=== PATIENT | male | born 1960 | race Caucasian/White ===

== ENCOUNTER 2022-10-26 17:44 | Inpatient (IN) | payer BC, OTHER ==
[~2022-10-26] VITALS: Ht 180 cm; Wt 77.4 kg
--- NOTE | 2022-10-26 18:07 | ED Neurological Problem ---
General Chief Complaint: Neuro-Stroke Like Symptoms Stated Complaint: RT SIDED WEAKNESS Nursing Triage Note: Patient has presesnted to ER with cc of right side weakness that started about 1200 - noon - today Source: patient History of Present Illness Date Seen by Provider: Oct 26, 2022 Time Seen by Provider: 17:48 Initial Comments 62-year-old male presenting with complaints of right-sided weakness and decreased sensation since noon today. He denies any head injury or accident. He states that he is having trouble walking due to weakness in the right leg. He feels like the right side of his body is not working right. He had his family finally bring him to the emergency department just before 6 PM. He denies having symptoms like this previously. He does not take any medications and does not follow with any primary care providers. He states there is a family history of a brother who had to have a kidney transplant due to high blood pressure. Both of his parents are . He reports that he does use marijuana and last used last night. Timing/Duration: 4-6 hours Severity: moderate Associated Symptoms: No confusion, No fatigue, No fever/chills, No insomnia, No loss of consciousness, No muscle spasms, No nausea/vomiting, No numbness in legs/feet; paresthesia (reports decreased sensation to right arm and right side of face); No ringing in ears, No seizures, No sleepy, No slurred speech, No ting ling in legs/feet; trouble walking (right side weakness); No vision changes; weakness (right sided) Allergies and Home Medications Allergies Coded Allergies: No Known Drug Allergies (Unverified , 10/26/22) Patient Home Medication List Home Medication List Reviewed: Yes Review of Systems Review of Systems Constitutional: No chills, No dizziness, No fever Eyes: Denies Blurred Vision, Denies Photophobia, Denies Vision Changes Ears, Nose, Mouth, Throat: denies ear pain, denies ear discharge, denies nose pain, denies nose discharge, denies epistaxis Respiratory: No cough, No short of breath Cardiovascular: No chest pain, No edema, No palpitations Gastrointestinal: No abdominal pain, No nausea, No vomiting Genitourinary: No dysuria Musculoskeletal: No muscle pain Skin: No rash Psychiatric/Neurological: Denies Headache; Numbness (right side of face and right arm), Weakness (right arm and leg) Hematologic/Lymphatic: Denies Blood Clots Past [id number]-[id number] Hx Patient Social History Tobacco Use?: No Smoking Status: Former Smoker Use of E-Cig and/or Vaping dev: No Substance use?: Yes Substance type: Marijuana Substance frequency: Daily Alcohol Use?: No Past Medical History Surgeries: No Physical Exam Vital Signs Vital Signs - First Documented 10/26/22 17:52 Temp 36.5 Pulse 70 Resp 18 B/P (MAP) 145/122 (130) Pulse Ox 98 O2 Delivery Room Air Capillary Refill : Height, Weight, BMI Height: '" Weight: lbs. oz. kg; 24.00 BMI Method: General Appearance: WD/WN, no apparent distress HEENT: PERRL/EOMI, pharynx normal Neck: non-tender, full range of motion, supple, normal inspection Respiratory: chest non-tender, lungs clear, normal breath sounds, no respiratory distress, no accessory muscle use Cardiovascular: normal peripheral pulses, regular rate, rhythm Gastrointestinal: normal bowel sounds, non tender, soft, no pulsatile mass Extremities: normal range of motion, non-tender, normal capillary refill Neurologic/Psychiatric: alert, oriented x 3 Crainal Nerves: normal hearing, normal speech, PERRL Motor/Sensory: sensory deficit (reports decreased sensation to right face and arm but sensation is equal on legs bilaterally), weak motor strength RUE (mild drift to RUE), weak motor strength RLE (mild drift to RLE) Skin: warm/dry, other (thickened yellowed fingernails consistent with onychomycosis) Stroke Onset of Symptoms Date of Onset of Symptoms: Oct 26, 2022 Time of Symptom Onset: 12:00 Onset of Symptoms: Yes NIH Stroke Scale Assessment Select: Initial Level of Consciousness: 0=Alert (0), Level of Consciousness- Questions: 0=Answers both month/age (0), LOC Commands: 0=Performs both tasks (0), Gaze: Normal (0), Visual [place]: 0=No visual loss (0), Facial Movement (Facial Paresis): 0=Normal symmetrical mnt (0), Motor Function-Arms Right: 1=Drift (1), Motor Function-Arms Left: 0=No drift (0), Motor Function-Legs Right: 1=Drift (1), Motor Function-Legs Left: 0=No drift (0), Limb Ataxia: 0=Absent (0), Sensory: 1=Mild to Moderate loss (1), Best Language: 0=No aphasia (0), Dysarthria: 0=Normal (0), Extinction & Inattention: 0=No abnormality (0), Total: 3 Stroke Thrombolytic Exclusion Age 18 or Over: Yes Acute intenal hemorrhage: No History of CVA: No Uncontrolled Coagulation Defec: No Intracranial Hemorrhage: No Severe Hypertension: No GI or Bleed: No Subarachnoid Hemorrhage: No Intracranial Neoplasm/Aneurysm: No Oral Anticoagulants: No Surgery or Trauma: No Puncture of Non-Compressible V: No Recent CPR: No Diabetic Hemorrhagic Retinopat: No Organ Biopsy: No Recent Obstetric Delivery: No Glucose: No Significant Hepatic Dysfunctio: No NIH Stoke Scale >22: No Bacterial Endocarditis: No Pericarditis: No Improving Symptoms: No Platelets: No TPA Contraindication: Yes (presentation to ED 6 hours post onset of symptoms) IV - TPa Received IV - TPa Procedure Performed?: No (presentation to ED 6 hours post onset of symptoms) Progress/Results/Core Measures Results/Orders Lab Results Laboratory Tests Test 10/26/22 17:51 10/26/22 18:22 10/26/22 20:24 Range/Units White Blood Count 8.4 4.3-11.0 10^3/uL Red Blood Count 6.19 H 4.30-5.52 10^6/uL Hemoglobin 17.4 13.3-17.7 g/dL Hematocrit 53 40-54 % Mean Corpuscular Volume 86 80-99 fL Mean Corpuscular Hemoglobin 28 25-34 pg Mean Corpuscular Hemoglobin Concent 33 32-36 g/dL Red Cell Distribution Width 13.1 10.0-14.5 % Platelet Count 246 130-400 10^3/uL Mean Platelet Volume 9.1 9.0-12.2 fL Immature Granulocyte % (Auto) 0 % Neutrophils (%) (Auto) 61 42-75 % Lymphocytes (%) (Auto) 24 12-44 % Monocytes (%) (Auto) 11 0-12 % Eosinophils (%) (Auto) 2 0-10 % Basophils (%) (Auto) 1 0-10 % Neutrophils # (Auto) 5.2 1.8-7.8 X 10^3 Lymphocytes # (Auto) 2.0 1.0-4.0 X 10^3 Monocytes # (Auto) 0.9 0.0-1.0 X 10^3 Eosinophils # (Auto) 0.2 0.0-0.3 10^3/uL Basophils # (Auto) 0.1 0.0-0.1 10^3/uL Immature Granulocyte # (Auto) 0.0 0.0-0.1 10^3/uL Prothrombin Time 12.0 L 12.2-14.7 SEC INR Comment 0.8 0.8-1.4 Activated Partial Thromboplast Time 28 24-35 SEC Sodium Level 143 135-145 MMOL/L Potassium Level 4.5 3.6-5.0 MMOL/L Chloride Level 106 98-107 MMOL/L Carbon Dioxide Level 26 21-32 MMOL/L Anion Gap 11 5-14 MMOL/L Blood Urea Nitrogen 13 7-18 MG/DL Creatinine 1.16 0.60-1.30 MG/DL Estimat Glomerular Filtration Rate 71 BUN/Creatinine Ratio 11 Glucose Level 95 70-105 MG/DL Calcium Level 9.8 8.5-10.1 MG/DL Corrected Calcium 9.4 8.5-10.1 MG/DL Total Bilirubin 0.5 0.1-1.0 MG/DL Aspartate Amino Transf (AST/SGOT) 25 5-34 U/L Alanine Aminotransferase (ALT/SGPT) 27 0-55 U/L Alkaline Phosphatase 109 40-136 U/L Troponin I < 0.30 <0.30 NG/ML Total Protein 7.6 6.4-8.2 GM/DL Albumin 4.5 3.2-4.5 GM/DL Serum Alcohol < 10 <10 MG/DL Glucometer 36 *L 70-110 MG/DL Urine Color YELLOW Urine Clarity CLEAR Urine pH 8.0 5-9 Urine Specific [place] 1.010 L 1.016-1.022 Urine Protein NEGATIVE NEGATIVE Urine Glucose (UA) NEGATIVE NEGATIVE Urine Ketones NEGATIVE NEGATIVE Urine Nitrite NEGATIVE NEGATIVE Urine Bilirubin NEGATIVE NEGATIVE Urine Urobilinogen 0.2 < = 1.0 MG/DL Urine Leukocyte Esterase NEGATIVE NEGATIVE Urine RBC (Auto) NEGATIVE NEGATIVE Urine RBC 0-2 /HPF Urine WBC NONE /HPF Urine Crystals NONE /LPF Urine Bacteria NEGATIVE /HPF Urine Casts NONE /LPF Urine Mucus SMALL H /LPF Urine Culture Indicated NO Urine Opiates Screen NEGATIVE NEGATIVE Urine Oxycodone Screen NEGATIVE NEGATIVE Urine Methadone Screen NEGATIVE NEGATIVE Urine Propoxyphene Screen NEGATIVE NEGATIVE Urine Barbiturates Screen NEGATIVE NEGATIVE Ur Tricyclic Antidepressants Screen NEGATIVE NEGATIVE Urine Phencyclidine Screen NEGATIVE NEGATIVE Urine Amphetamines Screen POSITIVE H NEGATIVE Urine Methamphetamines Screen POSITIVE H NEGATIVE Urine Benzodiazepines Screen NEGATIVE NEGATIVE Urine Cocaine Screen NEGATIVE NEGATIVE Urine Cannabinoids Screen NEGATIVE NEGATIVE My Orders Orders - SOFIYA RAMOS MD Cbc With Automated Diff (10/26/22 18:00) Protime With Inr (10/26/22 18:00) Partial Thromboplastin Time (10/26/22 18:00) Comprehensive Metabolic Panel (10/26/22 18:00) Troponin I Fs (10/26/22 18:00) Ua Culture If Indicated (10/26/22 18:00) Chest 1 View Ap/Pa Only (10/26/22 18:00) Ekg Tracing (10/26/22 18:00) Nothing By Mouth (10/26/22 Dinner) Accucheck Stat ONCE (10/26/22 18:00) Ed Iv/Invasive Line Start (10/26/22 18:00) Vital Signs Stroke Patient Q15M (10/26/22 18:00) Ct Head Wo-R/O Stroke (10/26/22 18:00) O2 (10/26/22 18:00) Intake & Output 06,14,22 (10/26/22 18:00) Monitor-Rhythm Ecg Trace Only (10/26/22 18:00) Dysphagia Screening Tool Q10MX1 (10/26/22 18:00) Alcohol (10/26/22 18:00) Drug Screen Stat (Urine) (10/26/22 18:00) Ct Angio Head/Neck (10/26/22 18:32) Iohexol Injection (Omnipaque 350 Mg/Ml 1 (10/26/22 18:45) Received Contrast (Hold Metformin- Contr (10/26/22 18:45) Ns (Ivpb) (Sodium Chloride 0.9% Ivpb Bag (10/26/22 18:45) Aspirin Tablet (Aspirin Tablet) (10/26/22 19:49) Clopidogrel Tablet (Plavix Tablet) (10/26/22 19:49) Ed Admission (Communication) (10/26/22 19:56) Code/Resuscitation (10/26/22 19:56) Medications Given in ED Current Medications Medications Dose Ordered Sig/Celestine Route Start Time Stop Time Status Last Admin Dose Admin Iohexol 75 ml ONCE ONCE IV 10/26/22 18:45 10/26/22 18:46 DC 10/26/22 18:55 75 ML Sodium Chloride 100 ml ONCE ONCE IV 10/26/22 18:45 10/26/22 18:46 DC 10/26/22 18:55 80 ML Vital Signs/I&O 10/26/22 10/26/22 10/26/22 17:52 19:10 20:57 Temp 36.5 Pulse 70 70 72 Resp 18 16 16 B/P (MAP) 145/122 (130) 158/76 124/76 Pulse Ox 98 99 99 O2 Delivery Room Air Room Air Blood Pressure Mean: 130 Progress Progress Note #1: Progress Note Potential diagnosis of acute stroke, substance abuse, hypertensive urgency, electrolyte imbalance, renal failure, hepatic failure. NIH stroke scale obtained on arrival to the emergency department. He scored a 3 with taking 1 off for decreased sensation to the right face and arm, one off for drift on the right upper extremity and 1 off for drift in the right lower extremity. This gave him a total NIH stroke scale of 3. He denied having a headache or any change in vision. Obtain peripheral IV access and send labs for complete blood count, comprehensive metabolic profile, troponin, alcohol, urinalysis, urine drug screen, pro time and INR, PTT. Electrocardiogram to assess his heart rate and rhythm. Placed on cardiac classroom paraprofessional to watch for any cardiac arrhythmia that might be contributing to his symptoms. Obtain CT scan of the head without IV contrast to look for signs of acute stroke or intracranial hemorrhage. Obtain 1 view chest x-ray looking for signs of cardiomegaly, mass, effusion. Progress Note #2: Time: 18:19 Progress Note I have reviewed the 1 view chest x-ray and CT head without contrast. On my personal interpretation and review I did not appreciate any acute process on his chest. I also did not appreciate any acute hemorrhage or evidence of stroke on the CT scan of the head. His complete blood count showed a normal white blood cell count of 8.4. His platelets were normal at 246. His hemoglobin was at the upper limits of high normal at 17.4. His coagulation factors were not elevated to indicate a coagulopathy. His alcohol level was less than 10. His comprehensive metabolic profile did not show any acute significant electrolyte imbalance. His renal function showed a creatinine of 1.16. Glucose was 95. His troponin was less than 0.3. We will add on a CT angiogram of the head and neck provided the radiologist report does not show anything different than my initial interpretation of the CT scan of the head. 182 reviewed the radiologist report on the single view chest x-ray and they did not see any acute process. 183 and I reviewed the radiologist report of the CT head without contrast and they did not appreciate any acute intracranial hemorrhage, mass, evidence of stroke. Proceed with the CT angiogram of the head and neck looking for possible large vessel occlusion. Once I have that report I will check in with the stroke neurologist to see if they have additional recommendations. Progress Note #3: Time: 19:11 Progress Note Discussed the case and patient presentation with Dr. Darien Horner from Neurology wind farm operations manager for stroke presentations. I reviewed the patient's presentation 6 hours post onset of symptoms. He was not having severe hypertension here in the emergency department. His NIH stroke scale was 3 with right-sided drift of the arm and leg and then decreased sensation of the right arm and face. He had stable labs without any acute significant abnormality to account for his symptoms today. CT head did not show intracranial hemorrhage or mass. On the CT angiogram they did not see any large vessel occlusion or clot for retrieval. He advised the patient would still benefit from admission and obtaining an echocardiogram to evaluate for any vegetations or clot in his heart as well as MRI of the brain. Telemetry monitoring to look for arrhythmia. He should be started on aspirin and Plavix for 3 weeks and then after 3 weeks he could decrease to monotherapy just with aspirin. We will give the first dose of aspirin and Plavix here in the ED and then call Dr. Milan on-call hospitalist for unassigned patients about admission. 1953 I reviewed the case with Dr. Milan wind farm operations manager hospitalist for unassigned admits. I reviewed the patient's presentation as well as his stable vital signs and normal lab results with CT scan of the head and CT angiogram of the head and neck without any obvious large vessel occlusion or hemorrhage. Recommendations from stroke neurologist reviewed with her. She was agreeable to admitting the patient to [facility]. She will place queued orders and I will place bed request order and code status. Initial ECG Impression Date: Oct 26, 2022 Initial ECG Impression Time: 18:02 Initial ECG Rate: 71 Initial ECG Rhythm: Normal Sinus Initial ECG Comparisson: No Previous ECG Available Comment On my initial interpretation and review his electrocardiogram shows a normal sinus rhythm with a heart rate of 71 bpm. SD interval 180 ms. There is no acute ST elevation. QT interval 358 ms with a QTc interval 381 ms. There is no prior tracing available for comparison. Diagnostic Imaging Diagonstic Imaging: CT Plain Films/CT/US/NM/MRI: head Comments NAME: ROB GLEZ [facility] REC#: [id number] PT STATUS: REG ER : 1960 PHYSICIAN: SOFIYA RAMOS MD ADMIT DATE: 10/26/22/ER FS Draft Date of Exam:10/26/22 CT HEAD WO-R/O STROKE Procedure: CT head wo r/o stroke. Technique: Multiple contiguous axial images were obtained through the brain without the use of intravenous contrast. Auto Exposure Controls were utilized during the CT exam to meet ALARA standards for radiation dose reduction. Date: October 26, 2022. Indication: 62-year-old male, right-sided weakness. Comparison: None. Findings: There is no identified skull fracture. The visualized portions of the paranasal sinuses, mastoid air cells and middle ears are well aerated. The ventricles and additional CSF spaces are normal in size and configuration for patient age. There is no identified abnormal extra-axial fluid collection. There is no evidence of acute intracranial hemorrhage. There is no mass effect or midline shift. Impression: No identified acute intracranial abnormality. Dictated on workstation # [id number] Dict: 10/26/22 1821 Trans: 10/26/22 1826 [facility] [id number] Interpreted by: NIKKY MASON MD Electronically signed by: Reviewed: Reviewed by Me (I reviewed the radiologist report at 1831) Diagonstic Imaging: Xray Plain Films/CT/US/NM/MRI: chest Comments NAME: ROB GLEZ [facility] REC#: [id number] PT STATUS: REG ER : 1960 PHYSICIAN: SOFIYA RAMOS MD ADMIT DATE: 10/26/22/ER FS Draft Date of Exam:10/26/22 CHEST 1 VIEW AP/PA ONLY EXAMINATION: Chest radiograph, portable AP view. DATE: 10/26/2022 6:19 PM INDICATION: 62-year-old male, right-sided weakness and neurologic deficits. COMPARISON: None. FINDINGS: Heart size and mediastinal contours are unremarkable. There is no identified pneumothorax. There is no large pleural effusion. There is no identified focal airspace consolidation. IMPRESSION: No identified acute cardiopulmonary abnormality. Dictated on workstation # [id number] Dict: 10/26/221819 Trans: 10/26/221821 [facility] [id number] Interpreted by: NIKKY MASON MD Electronically signed by: Reviewed: Reviewed by Me (I reviewed the radiologist report at 1825) Diagonstic Imaging: CT (angiography head and neck) Plain Films/CT/US/NM/MRI: head (and neck) Comments NAME: ROB GLEZ [facility] REC#: [id number] PT STATUS: REG ER : 1960 PHYSICIAN: SOFIYA RAMOS MD ADMIT DATE: 10/26/22/ER FS Draft Date of Exam:10/26/22 CT ANGIO HEAD/NECK Procedure: CT angiography of the head and CT angiography of the neck with and without contrast. Technique: Contiguous noncontrast images were obtained from the skull base through the vertex. After intravenous contrast administration, helical CT angiography of the neck was performed. Source data was reformatted into 3D MIP projections. Delayed post contrast acquisition was also obtained. Auto Exposure Controls were utilized during the CT exam to meet ALARA standards for radiation dose reduction. Date: October 26, 2022. Indication: 62-year-old male, right-sided weakness. Concern for stroke. Comparison: CT head without contrast October 26, 2022. Findings: The left common carotid artery is patent. There is mild calcified plaque at the proximal aspect of the left internal carotid artery without high-grade stenosis. There is poor contrast opacification in the left internal carotid artery distal to the level of the carotid canal. This may relate to the timing of the contrast bolus. The very proximal aspect of the left middle cerebral artery, at the M1 and proximal M2 levels, appears to be patent. The left anterior cerebral artery also appears grossly patent in its proximal aspects. The right anterior cerebral artery is patent in its proximal aspects. There is a patent anterior communicating artery. The right middle cerebral artery is patent. The right internal carotid artery is patent. There are calcifications of the cavernous segment of the right internal carotid artery. There is mild calcified plaque at the proximal aspect of the right internal carotid artery without high-grade stenosis. The right common carotid artery is patent. There is conventional origin of the left vertebral artery. The left vertebral artery is patent. The basilar artery is patent. The right posterior cerebral artery and left posterior cerebral artery are patent in their proximal aspects and are not well contrast opacified, distally. The right vertebral artery terminates prior to supplying blood flow to the basilar artery and is very small in caliber. The right vertebral artery is conventional in origin. There are finding of centrilobular emphysema. There is no identified venous sinus thrombosis. There are degenerative changes of the cervical spine. There is no identified abnormal intracranial enhancement. Impression: Patent arterial head and neck vasculature without high-grade stenosis, dissection, large vessel occlusion or aneurysm. Dictated on workstation # [id number] Dict: 10/26/221908 Trans: 10/26/221924 [facility] [id number] Interpreted by: NIKKY MASON MD Electronically signed by: Reviewed: Reviewed by Me Critical Care Note Critical Care Total Time (minutes) 45 minutes Progress WasI spent at least 45 minutes of critical care time with the patient. Time excludes separately billable procedures. Obtaining history from patient and family, ordering test and reviewing results, ordering interventions and reviewing response, discussion with consultants, documentation in the chart. Patient was at risk of neurologic compromise and further worsening of his symptoms. He required my immediate and direct intervention and management to stabilize his condition and arrange further care. Departure Communication (Admissions) Time/Spoke to Admitting Phy: 19:54 1953 I reviewed the case with Dr. Milan wind farm operations manager hospitalist for unassigned admits. I reviewed the patient's presentation as well as his stable vital signs and normal lab results with CT scan of the head and CT angiogram of the head and neck without any obvious large vessel occlusion or hemorrhage. Recommendations from stroke neurologist reviewed with her. She was agreeable to admitting the patient to [facility]. She will place queued orders and I will place bed request order and code status. Impression Primary Impression: Acute CVA (cerebrovascular accident) Additional Impressions: Acute right-sided weakness Paresthesia of right arm Facial paresthesia Disposition: 30 STILL A PATIENT Condition: Critical Admissions Decision to Admit Reason: Admit from ER (General) Decision to Admit/Date: Oct 26, 2022 Time/Decision to Admit Time: 19:54 Departure-Patient Inst. Referrals: NO,LOCAL PHYSICIAN (PCP/Family) Primary Care Physician SOFIYA RAMOS MD Oct 26, 2022 18:07
[2022-10-26 18:09] LABS: INR 0.8 (0.8-1.4)
[2022-10-26 18:10] LABS: HEMATOCRIT 53 % (40-54); HEMOGLOBIN 17.4 g/dL (13.3-17.7); MEAN CORPUSCULAR HEMOGLOBIN 28 pg (25-34); MEAN CORPUSCULAR VOLUME 86 fL (80-99); WHITE BLOOD COUNT 8.4 10^3/uL (4.3-11.0)
[2022-10-26 18:11] LABS: BASOPHILS # (AUTO) 0.1 10^3/uL (0.0-0.1); BASOPHILS % (AUTO) 1 % (0-10); EOSINOPHILS # (AUTO) 0.2 10^3/uL (0.0-0.3); EOSINOPHILS % (AUTO) 2 % (0-10); LYMPHOCYTES % (AUTO) 24 % (12-44); MEAN CORPUSCULAR HGB CONC 33 g/dL (32-36); MEAN PLATELET VOLUME 9.1 fL (9.0-12.2); MONOCYTES # (AUTO) 0.9 X 10^3 (0.0-1.0); MONOCYTES % (AUTO) 11 % (0-12); NEUTROPHILS # (AUTO) 5.2 X 10^3 (1.8-7.8); NEUTROPHILS % (AUTO) 61 % (42-75); PLATELET COUNT 246 10^3/uL (130-400)
[2022-10-26 18:18] LABS: ALANINE AMINOTRANSFERASE 27 U/L (0-55); ALKALINE PHOSPHATASE 109 U/L (40-136); BILIRUBIN,TOTAL 0.5 MG/DL (0.1-1.0); BUN/CREATININE RATIO 11; CALCIUM 9.8 MG/DL (8.5-10.1); CARBON DIOXIDE 26 MMOL/L (21-32); CHLORIDE 106 MMOL/L (98-107); CREATININE SERUM 1.16 MG/DL (0.60-1.30); GFR ESTIMATED 71; GLUCOSE 95 MG/DL (70-105); POTASSIUM 4.5 MMOL/L (3.6-5.0); SODIUM 143 MMOL/L (135-145)
[2022-10-26 18:19] LABS: ALBUMIN 4.5 GM/DL (3.2-4.5); TOTAL PROTEIN 7.6 GM/DL (6.4-8.2)
--- NOTE | 2022-10-26 18:22 | Diagnostic Imaging Report ---
EXAMINATION: Chest radiograph, portable AP view. DATE: 10/26/2022 6:19 PM INDICATION: 62-year-old male, right-sided weakness and neurologic deficits. COMPARISON: None. FINDINGS: Heart size and mediastinal contours are unremarkable. There is no identified pneumothorax. There is no large pleural effusion. There is no identified focal airspace consolidation. IMPRESSION: No identified acute cardiopulmonary abnormality. Dictated by: Dictated on workstation # [id number]
--- NOTE | 2022-10-26 18:27 | Diagnostic Imaging Report ---
Procedure: CT head wo r/o stroke. Technique: Multiple contiguous axial images were obtained through the brain without the use of intravenous contrast. Auto Exposure Controls were utilized during the CT exam to meet ALARA standards for radiation dose reduction. Date: October 26, 2022. Indication: 62-year-old male, right-sided weakness. Comparison: None. Findings: There is no identified skull fracture. The visualized portions of the paranasal sinuses, mastoid air cells and middle ears are well aerated. The ventricles and additional CSF spaces are normal in size and configuration for patient age. There is no identified abnormal extra-axial fluid collection. There is no evidence of acute intracranial hemorrhage. There is no mass effect or midline shift. Impression: No identified acute intracranial abnormality. Dictated by: Dictated on workstation # [id number]
[2022-10-26] MEDS ORDERED: IOHEXOL 350 MG/ML 100 ML (OMNIPAQUE 350) VIAL IV ONE (18:45)
[2022-10-26] MEDS ORDERED: HOLD METFORMIN - RECEIVED CONTRAST 20 ML VIAL IV SCH (18:45)
[2022-10-26] MEDS ORDERED: NS 100 ML (IVPB) BAG IV ONE (18:45)
[2022-10-26 19:10] VITALS: BP 158/76
--- NOTE | 2022-10-26 19:26 | Diagnostic Imaging Report ---
Procedure: CT angiography of the head and CT angiography of the neck with and without contrast. Technique: Contiguous noncontrast images were obtained from the skull base through the vertex. After intravenous contrast administration, helical CT angiography of the neck was performed. Source data was reformatted into 3D MIP projections. Delayed post contrast acquisition was also obtained. Auto Exposure Controls were utilized during the CT exam to meet ALARA standards for radiation dose reduction. Date: October 26, 2022. Indication: 62-year-old male, right-sided weakness. Concern for stroke. Comparison: CT head without contrast October 26, 2022. Findings: The left common carotid artery is patent. There is mild calcified plaque at the proximal aspect of the left internal carotid artery without high-grade stenosis. There is poor contrast opacification in the left internal carotid artery distal to the level of the carotid canal. This may relate to the timing of the contrast bolus. The very proximal aspect of the left middle cerebral artery, at the M1 and proximal M2 levels, appears to be patent. The left anterior cerebral artery also appears grossly patent in its proximal aspects. The right anterior cerebral artery is patent in its proximal aspects. There is a patent anterior communicating artery. The right middle cerebral artery is patent. The right internal carotid artery is patent. There are calcifications of the cavernous segment of the right internal carotid artery. There is mild calcified plaque at the proximal aspect of the right internal carotid artery without high-grade stenosis. The right common carotid artery is patent. There is conventional origin of the left vertebral artery. The left vertebral artery is patent. The basilar artery is patent. The right posterior cerebral artery and left posterior cerebral artery are patent in their proximal aspects and are not well contrast opacified, distally. The right vertebral artery terminates prior to supplying blood flow to the basilar artery and is very small in caliber. The right vertebral artery is conventional in origin. There are finding of centrilobular emphysema. There is no identified venous sinus thrombosis. There are degenerative changes of the cervical spine. There is no identified abnormal intracranial enhancement. Impression: Patent arterial head and neck vasculature without high-grade stenosis, dissection, large vessel occlusion or aneurysm. Dictated by: Dictated on workstation # [id number]
[2022-10-26] MEDS ORDERED: ASPIRIN 325 MG (5 GR) TABLET PO STA (19:49)
[2022-10-26] MEDS ORDERED: CLOPIDOGREL 75 MG (PLAVIX) TABLET PO STA (19:49)
[2022-10-26 20:25] LABS: BILIRUBIN,URINE NEGATIVE (NEGATIVE); CLARITY,URINE CLEAR; COLOR,URINE YELLOW; GLUCOSE, URINE (UA) NEGATIVE (NEGATIVE); KETONES,URINE NEGATIVE (NEGATIVE); LEUKOCYTE ESTERASE ,URINE NEGATIVE (NEGATIVE); NITRITE,URINE NEGATIVE (NEGATIVE); PROTEIN,URINE NEGATIVE (NEGATIVE)
[2022-10-26 20:28] LABS: BACTERIA,URINE NEGATIVE /HPF; RBC,URINE 0-2 /HPF
[2022-10-26 20:36] LABS: AMPHETAMINE SCREEN, URINE POSITIVE (NEGATIVE); BARBITURATE SCREEN URINE NEGATIVE (NEGATIVE); BENZODIAZEPINES SCREEN URINE NEGATIVE (NEGATIVE); CANNABINOID SCREEN, URINE NEGATIVE (NEGATIVE); COCAINE SCREEN URINE NEGATIVE (NEGATIVE); METHADONE STAT NEGATIVE (NEGATIVE); OPIATE SCREEN URINE NEGATIVE (NEGATIVE); OXYCODONE STAT NEGATIVE (NEGATIVE); PROPOXYPHENE STAT NEGATIVE (NEGATIVE); TRICYCLIC ANTIDEPRESSANTS SCRE NEGATIVE (NEGATIVE)
[2022-10-26] MEDS ORDERED: ONDANSETRON 4 MG/2 ML (SDV) Z0FRAN IVP ONE (20:45)
[2022-10-26 22:00] VITALS: BP 157/85
[2022-10-26] MEDS ORDERED: ACETAMINOPHEN 325 MG TABLET PO PRN (22:15)
[2022-10-26 22:46] LABS: TRIGLYCERIDES 248 MG/DL (<150); VLDL CHOLESTEROL 50 MG/DL (5-40)
[2022-10-26 22:51] LABS: CHOLESTEROL 204 MG/DL (< 200); HDL CHOLESTEROL 54 MG/DL (40-60)
[2022-10-26 23:14] VITALS: BP 159/83
[2022-10-27 03:07] VITALS: BP 176/87
[2022-10-27 05:15] LABS: HEMATOCRIT 47 % (40-54); HEMOGLOBIN 15.7 g/dL (13.3-17.7); MEAN CORPUSCULAR HEMOGLOBIN 29 pg (25-34); MEAN CORPUSCULAR HGB CONC 33 g/dL (32-36); MEAN CORPUSCULAR VOLUME 87 fL (80-99); MEAN PLATELET VOLUME 9.5 fL (9.0-12.2); PLATELET COUNT 210 10^3/uL (130-400); WHITE BLOOD COUNT 8.4 10^3/uL (4.3-11.0)
[2022-10-27 05:37] LABS: ALBUMIN 3.8 GM/DL (3.2-4.5); POTASSIUM 4.2 MMOL/L (3.6-5.0)
[2022-10-27 05:38] LABS: CALCIUM 9.3 MG/DL (8.5-10.1)
[2022-10-27 05:40] LABS: TOTAL PROTEIN 6.6 GM/DL (6.4-8.2)
[2022-10-27 05:41] LABS: BILIRUBIN,TOTAL 0.5 MG/DL (0.1-1.0)
[2022-10-27 05:43] LABS: CREATININE SERUM 1.18 MG/DL (0.60-1.30)
[2022-10-27 07:20] VITALS: BP 175/94
[2022-10-27] MEDS: ASPIRIN 325 MG (5 GR) TABLET PO SCH (08:48)
[2022-10-27] MEDS: CLOPIDOGREL 75 MG (PLAVIX) TABLET PO SCH (08:48)
--- NOTE | 2022-10-27 10:24 | History & Physical-Hospitalist ---
History of Present Illness HPI/Chief Complaint Patient is a 62-year-old male with no known past medical history who presented to the emergency department due to right-sided deficits. He reports he has not been to a doctor in many years and does not seek medical care generally. He developed right-sided weakness yesterday around noon and decided to seek evaluation at his family's prompting yesterday evening. Unfortunately he was outside of the window for tPA for this and given his NIH score of 3 he was taken emergently to CT which showed no intracranial hemorrhage and actually was negative for acute findings. A CTA of his head was done and showed no large vessel occlusions. The ER doctor consulted with stroke neurology who recommended admission for observation for stroke rule out. This morning he reports that his symptoms are about the same. He states it is not so much weakness is that he feels that his arms and legs are doing what he wants him to do. He is able to move them freely about though and follows commands when given with those extremities. He otherwise denies any issues. Source: patient Date Seen 10/27/22 Time Seen by a Provider: 09:30 Attending Physician No,Local Physician PCP Admitting Physician: Jony Milan MD Attending Physician: Jony Milan MD Referring Physician Date of Admission Oct 26, 2022 at 22:00 Home Medications & Allergies Home Medications Reviewed patient Home Medication Reconciliation performed by pharmacy medication reconciliations machine maintenance technician and/or nursing. Patients Allergies have been reviewed. Allergies Allergies Coded Allergies No Known Drug Allergies (Unverified10/26/22) Past Zitratc-Ycgobx-Vzdnbn Hx Patient Social History Tobacco Use?: No Smoking Status: Former Smoker Use of E-Cig and/or Vaping dev: No Substance use?: Yes Substance type: Amphetamines, Methamphetamine Substance frequency: Daily Alcohol Use?: No Pt feels they are or have been: Unable to obtain Current Status Advance Directives: No Communicates: Verbally Primary Language: Slovenian Preferred Spoken Language: Slovenian Sensory deficits: Vision impairment Implanted or Applied Medical D: None Review of Systems Constitutional: see HPI Physical Exam Physical Exam Vital Signs Vital Signs - First Documented 10/26/22 17:52 Temp 36.5 Pulse 70 Resp 18 B/P (MAP) 145/122 (130) Pulse Ox 98 O2 Delivery Room Air Capillary Refill : Height, Weight, BMI Height: '" Weight: lbs. oz. kg; 23.88 BMI Method: General Appearance: No Apparent Distress, WD/WN Respiratory: Lungs Clear, No Accessory Muscle Use, No Respiratory Distress Cardiovascular: Regular Rate, Rhythm, No Murmur Gastrointestinal: Normal Bowel Sounds, Non Tender, Soft Extremity: No Calf Tenderness, No Pedal Edema Neurologic/Psychiatric: Alert, Oriented x3; No Sensory Deficit; Other (very m inimal motor deficit of right upper and lower extremity (4+/5) but proprioception still abnormal ) Results Results/Procedures Labs Laboratory Tests 10/26/22 17:51 10/27/22 04:52 Patient resulted labs reviewed. Imaging: Reviewed Imaging Report [facility] [place] [place] NAME: ROB GLEZ [facility] REC#: [id number] PT STATUS: REG ER : 1960 PHYSICIAN: SOFIYA RAMOS MD ADMIT DATE: 10/26/22/ER FS Signed Date of Exam:10/26/22 CT HEAD WO-R/O STROKE Procedure: CT head wo r/o stroke. Technique: Multiple contiguous axial images were obtained through the brain without the use of intravenous contrast. Auto Exposure Controls were utilized during the CT exam to meet ALARA standards for radiation dose reduction. Date: October 26, 2022. Indication: 62-year-old male, right-sided weakness. Comparison: None. Findings: There is no identified skull fracture. The visualized portions of the paranasal sinuses, mastoid air cells and middle ears are well aerated. The ventricles and additional CSF spaces are normal in size and configuration for patient age. There is no identified abnormal extra-axial fluid collection. There is no evidence of acute intracranial hemorrhage. There is no mass effect or midline shift. Impression: No identified acute intracranial abnormality. Dictated by: Dictated on workstation # [id number] Dict: 10/26/221820 Trans: 10/26/221831 [facility] [id number] Interpreted by: NIKKY MASON MD Electronically signed by: NIKKY MASON MD 10/26/221831 [facility] [place] [place] NAME: ROB GLEZ [facility] REC#: [id number] PT STATUS: REG ER : 1960 PHYSICIAN: SOFIYA RAMOS MD ADMIT DATE: 10/26/22/ER FS Signed Date of Exam:10/26/22 CT ANGIO HEAD/NECK Procedure: CT angiography of the head and CT angiography of the neck with and without contrast. Technique: Contiguous noncontrast images were obtained from the skull base through the vertex. After intravenous contrast administration, helical CT angiography of the neck was performed. Source data was reformatted into 3D MIP projections. Delayed post contrast acquisition was also obtained. Auto Exposure Controls were utilized during the CT exam to meet ALARA standards for radiation dose reduction. Date: October 26, 2022. Indication: 62-year-old male, right-sided weakness. Concern for stroke. Comparison: CT head without contrast October 26, 2022. Findings: The left common carotid artery is patent. There is mild calcified plaque at the proximal aspect of the left internal carotid artery without high-grade stenosis. There is poor contrast opacification in the left internal carotid artery distal to the level of the carotid canal. This may relate to the timing of the contrast bolus. The very proximal aspect of the left middle cerebral artery, at the M1 and proximal M2 levels, appears to be patent. The left anterior cerebral artery also appears grossly patent in its proximal aspects. The right anterior cerebral artery is patent in its proximal aspects. There is a patent anterior communicating artery. The right middle cerebral artery is patent. The right internal carotid artery is patent. There are calcifications of the cavernous segment of the right internal carotid artery. There is mild calcified plaque at the proximal aspect of the right internal carotid artery without high-grade stenosis. The right common carotid artery is patent. There is conventional origin of the left vertebral artery. The left vertebral artery is patent. The basilar artery is patent. The right posterior cerebral artery and left posterior cerebral artery are patent in their proximal aspects and are not well contrast opacified, distally. The right vertebral artery terminates prior to supplying blood flow to the basilar artery and is very small in caliber. The right vertebral artery is conventional in origin. There are finding of centrilobular emphysema. There is no identified venous sinus thrombosis. There are degenerative changes of the cervical spine. There is no identified abnormal intracranial enhancement. Impression: Patent arterial head and neck vasculature without high-grade stenosis, dissection, large vessel occlusion or aneurysm. Dictated by: Dictated on workstation # [id number] Dict: 10/26/221908 Trans: 10/26/221928 [facility] [id number] Interpreted by: NIKKY MASON MD Electronically signed by: NIKKY MASON MD 10/26/221928 Assessment/Plan Admission Diagnosis Right sided weakness Admission Status: Inpatient Order (span 2 midnights) Reason for Inpatient Admission: see below Assessment and Plan Right sided weakness Elevated BP HLD Concern for acute CVA Outside the window for TPA CT head negative for acute findings CTA without large vessel occlusion Echo ordered BP up today- allow for permissive hypertension Likely has underlying HTN Lipid panel with elevated TC and LDL- add Lipitor Continue DAPT per [facility] recs PT/OT ordered Clinical Quality Measures Stroke: Date of last known well: Oct 26, 2022 Time of last known well: 12:00 JONY MILAN MD Oct 27, 2022 10:24
[2022-10-27] MEDS ORDERED: hydrALAZINE (APESOLINE) 20 MG/ML VIAL IV PRN (11:45)
[2022-10-27 11:51] VITALS: BP 166/86
[2022-10-27 16:36] VITALS: BP 152/89
[2022-10-27 19:11] VITALS: BP 160/91
[2022-10-27 23:59] VITALS: BP 149/93
[2022-10-28 03:22] VITALS: BP 160/93
[2022-10-28 07:32] VITALS: BP 148/95
[2022-10-28] MEDS: CLOPIDOGREL 75 MG (PLAVIX) TABLET PO SCH (08:41)
[2022-10-28] MEDS: ASPIRIN 325 MG (5 GR) TABLET PO SCH (08:41)
[2022-10-28] MEDS ORDERED: ACET-2267 PO (08:52)
[2022-10-28] MEDS ORDERED: IBUP-2473 PO (08:53)
--- NOTE | 2022-10-28 09:45 | Speech Therapy Progress Note ---
Therapy Progress Note Speech pathology received speech, language, cognitive, and dysphagia consults for this patient due to stroke protocol. The patient "passed" the RN Dysphagia Screening and is currently tolerating a "heart healthy" regular consistency diet with thin liquids. The patient denied difficulties with any area within the scope of practice for speech language pathology. The patient was encouraged to contact staff if difficulties in these areas arise. Speech pathology to sign off of skilled services at this time. Thank you for the consultation. MICHELLE IQBAL Oct 28, 2022 09:45
[2022-10-28] MEDS ORDERED: amLODIPine 10 MG (NORVASC) TAB PO ONE (10:15)
--- NOTE | 2022-10-28 10:17 | Occupational Therapy Eval ---
OT Evaluation-General/PLF Medical Diagnosis Admission Date Oct 26, 2022 at 22:00 Medical Diagnosis: right side weakness Onset Date: Oct 26, 2022 Therapy Diagnosis Therapy Diagnosis: numbness and weakenss Precautions Precautions/Isolations: Standard Precautions Social History Home: Single Level Current Living Status: room mate Entry Into Home: Ramp (renting home, home has ramp) ADL-Prior Level of Function SCALE: Activities may be completed with or without assistive devices. 1-Muzziflbsu-rejxvhu completes the activity by him/herself with no assistance from a helper. 5-Set-up or Clean-up Assistance-helper sets up or cleans up; patient completes activity. [place] assists only prior to or following the activity. 4-Supervision or Touching Assistance-helper provides verbal cues and/or touching/steadying and/or contact guard assistance as patient completes activity. Assistance may be provided throughout the activity or intermittently. 3-Partial/Moderate Assistance-helper does LESS THAN HALF the effort. [place] lifts, holds or supports trunk or limbs, but provides less than half the effort. 2-Substantial/Maximal Assistance-helper does MORE THAN HALF the effort. [place] lifts or holds trunk or limbs and provides more than half the effort. 7-Pqogepmcv-elrqtr does ALL the effort. Patient does none of the effort to complete the activity. Or, the assistance of 2 or more helpers is required for the patient to complete the activity. If activity was not attempted, code reason: 7-Patient Refused. 9-Not Applicable-not attempted and the patient did not perform the activity before the current illness, exacerbation or injury. 10-Not Attempted due to Environmental Limitations-(lack of equipment, weather restraints, etc.). 88-Not Attempted due to Medical Conditions or Safety Concerns. Self Care: Independent Functional Cognition: Independent Occupation: employed by [employer] Self: Yes OT Current Status Mental Status/Objective Patient Orientation: Person, Place, Time (" FridayOctober 27" read on white board ), Situation Current Glasses/Contacts: Yes Dentures/Partials: Yes Hand Dominance: Right Upper Extremity ROM BUE ROM WNLs Upper Extremity Coordination FMC/ GMC UE WNLS Upper Extremity Sensation Patient reports index right finger has some numbness. OT noted nails are in poor condition Upper Extremity Strength BUE strength 5/5. tip pinch 4/5, composite junior bookkeeper 5/5 ADL-Treatment Eating (QC): 6 Oral Hygiene (QC): 6 Shower/Bathe Self (QC): 7 Upper Body Dressing (QC): 6 Lower Body Dressing (QC): 6 On/Off Footwear (QC): 6 Toileting Hygiene (QC): 6 Education OT Patient Education: Energy conservation, Exercise program, Modified ADL techniques, Progress toward Goal/Update tx plan, Purpose of tx/functional activities, Reviewed precautions, Rehab process, Safety issues, Transfer techniques, Use of adapted equipment Teaching Recipient: Patient Teaching Methods: Demonstration Response to Teaching: Verbalize Understanding, Return Demonstration OT Flexboard Operator Goals Flexboard Operator Goals 1=Demonstrate adherence to instructed precautions during ADL tasks. 2=Patient will verbalize/demonstrate understanding of assistive devices/modifications for ADL. 3=Patient will improve strength/tolerance for activity to enable patient to perform ADL's. OT Education/Plan Problem List/Assessment Assessment: No Skilled OT Needs ID'd Discharge Recommendations Plan/Recommendations: Discontinue OT Treatment Plan/Plan of Care Treatment,Training & Education: No Patient would benefit from OT for education, treatment and training to promote independence in ADL's, mobility, safety and/or upper extremity function for ADL's. Plan of Care: OTHER (EVAL ONLY) Treatment Duration: Oct 28, 2022 Frequency: 1 time per week Agreement: Yes Rehab Potential: Good Time Start Time: 10:11 Stop Time: 10:23 DATE: Oct 28, 2022 Total Time Billed (hr/min): 12 Billed Treatment Time EVL 12 min BARI ULLOA OT Oct 28, 2022 10:17
--- NOTE | 2022-10-28 10:21 | Physical Therapy Evaluation ---
PT Evaluation-General Medical Diagnosis Admission Date Oct 26, 2022 at 22:00 Medical Diagnosis: right sided weakness Onset Date: Oct 26, 2022 Therapy Diagnosis Therapy Diagnosis: debility/weakness Precautions Precautions/Isolations: Standard Precautions Weight Bear Status Right Lower Extremity: Right Weight Bearing/Tolerated Left Lower Extremity: Left Weight Bearing/Tolerated Referral Physician: Bjorn Reason for Referral: Evaluation/Treatment Medical History Pertinent Medical History: Smoking Current History ER secondary to right sides weakness/ (+) meth Reviewed History: Yes Social History Home: Single Level Current Living Status: Friend Entry Into Home: Ramp Prior Prior Level of Function SCALE: Activities may be completed with or without assistive devices. 5-Vleeynjbhl-civoqlb completes the activity by him/herself with no assistance from a helper. 5-Set-up or Clean-up Assistance-helper sets up or cleans up; patient completes a ctivity. [place] assists only prior to or following the activity. 4-Supervision or Touching Assistance-helper provides verbal cues and/or touching/steadying and/or contact guard assistance as patient completes activity. Assistance may be provided throughout the activity or intermittently. 3-Partial/Moderate Assistance-helper does LESS THAN HALF the effort. [place] lifts, holds or supports trunk or limbs, but provides less than half the effort. 2-Substantial/Maximal Assistance-helper does MORE THAN HALF the effort. [place] lifts or holds trunk or limbs and provides more than half the effort. 6-Veahfskzf-lmxvgk does ALL the effort. Patient does none of the effort to complete the activity. Or, the assistance of 2 or more helpers is required for the patient to complete the activity. If activity was not attempted, code reason: 7-Patient Refused. 9-Not Applicable-not attempted and the patient did not perform the activity before the current illness, exacerbation or injury. 10-Not Attempted due to Environmental Limitations-(lack of equipment, weather restraints, etc.). 88-Not Attempted due to Medical Conditions or Safety Concerns. Bed Mobility: 6 Transfers (B,C,W/C): 6 Gait: 6 Stairs: 6 Indoor Mobility (Ambulation): Independent Stairs: Independent Prior Devices Use: None PT Evaluation-Current Subjective Patient agrees to PT. Objective Patient Orientation: Normal For Age ROM/Strength ROM Lower Extremities bilateral LE WFL Strength Lower Extremities 4+/5 grossly bilateral LE all planes Integumentary/Posture Bowel Incontinence: No Bladder Incontinence: No Posture WFL Neuromuscular (Tone, Coordination, Reflexes) grossly intact Sensory Vision: Functional Hearing: Functional Transfers Lying to Sitting/Side of Bed(Q: 6 Sit to Stand (QC): 6 Chair/Vrv-fv-Rmcxr Xfer(QC): 6 Gait Mode of Locomotion: Walk Anticipated Mode of Locomotion: Walk Walk 10 feet (QC): 6 Walk 50 ft with 2 Turns(QC): 6 Walk 150 ft (QC): 6 Distance: >500' Gait Assistive Device: FWW Comments/Gait Description safe and functional with no deviation Balance Sitting Static: Normal Sitting Dynamic: Normal Standing Static: Normal Standing Dynamic: Normal Assessment/Needs Patient is currently at independent [facility] with all gross motor skills and does not require skilled PT intervention at this time. Rehab Potential: Fair PT Plan Treatment/Plan Treatment Plan: Discontinue PT Treatment Duration: Oct 28, 2022 Frequency: 1 time per week Estimated Hrs Per Day: .25 hour per day Time Time In: 840 Time Out: 849 DATE: Oct 28, 2022 Total Billed Treatment Time: 9 Total Billed Treatment 1 visit EVMod 9 min KATHYA MORATAYA PT Oct 28, 2022 10:21
--- NOTE | 2022-10-28 10:36 | Diagnostic Imaging Report ---
PROCEDURE: MR imaging of the brain without contrast. TECHNIQUE: Multiplanar, multisequence MR imaging of the brain was performed without contrast. INDICATION: Right-sided weakness. Stroke. COMPARISON: CTA head and neck 10/26/2022. FINDINGS: Restricted water diffusion in the left thalamus measuring up to 0.9 cm. Minimal additional nonspecific T2 hyperintensities in the supratentorial white matter compatible with chronic small vessel ischemic change. Normal morphology of the major midline structures, sella, posterior fossa and cerebellar pontine angle. Normal intracranial flow voids. No hydrocephalus or extra-axial fluid collections. No hemosiderin deposition or evidence of intracranial hemorrhage. The orbits are unremarkable. Paranasal sinuses and mastoids are clear. Normal bone marrow signal IMPRESSION: Subcentimeter acute to subacute lacunar infarct in the left thalamus. Dictated by: Dictated on workstation # [id number]
[2022-10-28 11:20] VITALS: BP 136/72
[2022-10-28] MEDS ORDERED: ATOR80TA76 PO (12:58)
[2022-10-28] MEDS ORDERED: ASPI-999 PO (12:58)
[2022-10-28] MEDS ORDERED: CLOP75TA28 PO (12:58)
[2022-10-28] MEDS ORDERED: AMLO-251 PO (12:58)
[2022-10-28 13:09] VITALS: BP 136/72
--- NOTE | 2022-10-28 13:50 | Discharge Summary ---
Discharge Summary Hospital Course Problems/Dx: (1) Stroke Status: Acute Qualifiers: (2) Lacunar infarction Status: Acute (3) HTN (hypertension) Status: Acute Qualifiers: Qualified Codes: I10 - Essential (primary) hypertension (4) Methamphetamine abuse Status: Acute (5) HLD (hyperlipidemia) Status: Acute Hospital Course Date of Admission: Oct 26, 2022 at 22:00 Admission Diagnosis : Right sided weakness Family Physician/Provider: No,Local Physician Date of Discharge: 10/28/22 Discharge Diagnosis: Lacunar infarct of left thalamus Hospital Course: Elizabeth Gurrola is a 62 year old male who presented with right sided weakness. He has no known past medical history and does not take any medications. He had some right sided deficits. He was outside the window for tPA. CT imaging was unrevealing. He was able to have an MRI which revealed left thalamic lacunar infarction. His symptoms nearly all resolved prior to discharge. His blood pressure was elevated and he was allowed permissive hypertension. He was started on Amlodipine. He was started on Aspirin and Plavix. His lipids were elevated and he was started on Lipitor. He worked with therapy and was doing well. He needs to establish with a primary care physician. He was discharged home in stable condition. Labs and Pending Lab Test: Laboratory Tests 10/27/22 17:17: Glucometer 97 10/28/22 00:30: Glucometer 96 10/28/22 05:37: Glucometer 96 10/28/22 11:57: Glucometer 83 Home Meds Active Aspirin 81 Mg Tab.chew 81 Mg PO DAILY 30 Days Clopidogrel (Clopidogrel Bisulfate) 75 Mg Tablet 75 Mg PO DAILY 30 Days Atorvastatin Calcium 80 Mg Tablet 80 Mg PO HS 30 Days Amlodipine Besylate 10 Mg Tablet 10 Mg PO DAILY 30 Days Reported Tylenol Extra Strength (Acetaminophen) 500 Mg Tablet 1,000 Mg PO Q8H PRN TAKES 2 (500MG) TABS Assessment/Pt Instructions See instructions Discharge Planning: >30 minutes discharge planning Discharge Instructions Discharge Diet: Low Sodium Diet Activity as Tolerated: Yes Discharge Physical Examination Vital Signs Vital Signs Date Time Temp Pulse Resp B/P (MAP) Pulse Ox O2 Delivery O2 Flow Rate FiO2 10/28/22 13:09 36.5 71 18 136/72 98 Room Air General Appearance: No Apparent Distress, WD/WN HEENT: PERRL/EOMI, Pharynx Normal Respiratory: Lungs Clear, Normal Breath Sounds, No Respiratory Distress Cardiovascular: Regular Rate, Rhythm, No Edema, No Murmur Gastrointestinal: Normal Bowel Sounds, Non Tender, Soft Extremity: Normal Inspection, Non Tender, No Pedal Edema Skin: Normal Color, Warm/Dry Neurologic/Psychiatric: Alert, Oriented x3, Normal Mood/Affect; No Facial Droop, No Motor Weakness; Sensory Deficit Allergies: Coded Allergies: No Known Drug Allergies (Unverified , 10/26/22) Copy Copies To 1: [facility] [place] Summary Date of Admission Oct 26, 2022 at 22:00 Date of Discharge Discharge Date: Oct 28, 2022 Discharge Time: 10:25 Admission Diagnosis Right sided weakness Discharge Diagnosis (1) Stroke Status: Acute Qualifiers: (2) Lacunar infarction Status: Acute (3) HTN (hypertension) Status: Acute Qualifiers: Qualified Codes: I10 - Essential (primary) hypertension (4) HLD (hyperlipidemia) Status: Acute (5) Methamphetamine abuse Status: Acute Clinical Quality Measures Stroke: Date of last known well: Oct 26, 2022 Time of last known well: 12:00 VIRGEN ZEPEDA MD Oct 28, 2022 13:35
--- NOTE | 2022-10-28 15:31 | Physician Query-Final Dx ---
AISSATOU COVINGTON 10/28/22 1531: Final Diagnosis Give Final Diagnosis The medical record reflects the following clinical evidence: Clinical Indicators: "right-sided deficits...He developed right-sided weakness" Per ER physician "facial paresthesia, acute right-sided weakness" Risk Factor(s): Smoking Hx, illicit drug use, Treatment: CT/MRI for diagnosis of CVA, PT/OT/speech Hemiplegia, affecting right side, Present on admission Other explanation of clinical findings Unable to determine (no explanation for clinical findings) Please clarify and document your clinical opinion in the progress notes and discharge summary including the definitive and/or presumptive diagnosis, (suspected or probable), related to the above clinical findings. Please include clinical findings supporting your diagnosis. Aissatou Covington, MSN, RN Clinical [facility] [phone] [email or web address] VIRGEN ZEPEDA MD 10/28/22 1803: Final Diagnosis Give Final Diagnosis See discharge summary AISSATOU COVINGTON Oct 28, 2022 15:31 VIRGEN ZEPEDA MD Oct 28, 2022 18:03
[2022-10-29] MEDS ORDERED: amLODIPine 10 MG (NORVASC) TAB PO SCH (09:00)
== END 2022-10-28 14:20 | disposition home or self-care (01) | DRG 65 ==
LOC: ER FS 17:47 → 4TH 22:00
PROVIDERS: ADMIT Family Medicine; ATTEND Internal Medicine
DX: I63.81 Other cerebral infarction due to occlusion or stenosis of small artery (principal); G81.91 Hemiplegia, unspecified affecting right dominant side; I10 Essential (primary) hypertension; R29.703 NIHSS score 3; F15.10 Other stimulant abuse, uncomplicated; E78.5 Hyperlipidemia, unspecified; H54.7 Unspecified visual loss; B35.1 Tinea unguium; Z87.891 Personal history of nicotine dependence
CPT/HCPCS: 36415; 70450; 70496; 70498; 70551; 71045; 80053; 80061; 80306; 80320; 81000; 82947; 84484; 85025; 85027; 85610; 85730; 93005; 93041; 93306; 94664; Q9967